=== PATIENT | female | born 2000 | race Caucasian/White ===

== ENCOUNTER 2022-10-26 13:51 | Emergency (ER) | payer OTHER ==
[~2022-10-26] VITALS: Ht 167.6 cm; Wt 97.3 kg
[2022-10-26 15:07] LABS: BASO % 0.3 % (0.0-1.0); EOS % 0.3 % (0.0-3.0); HEMATOCRIT 42.3 % (36.0-47.0); HEMOGLOBIN 13.2 g/dl (12.0-15.5); LYMPH # 1.9 10^3/uL (1.5-5.0); LYMPH % 12.2 % (24.0-44.0); MEAN CORPUSCULAR HGB CONC 31.2 g/dl (32.0-36.5); MEAN CORPUSCULAR VOLUME 89.8 fl (80.0-96.0); MONO # 1.2 10^3/uL (0.0-0.8); MONO % 7.4 % (2.0-8.0); NEUTROPHILS # 12.5 10^3/uL (1.5-8.5); NEUTROPHILS % 79.3 % (36.0-66.0); PLATELET COUNT, AUTOMATED 327 10^3/uL (150-450); RED BLOOD COUNT 4.71 10^6/uL (4.00-5.40); WHITE BLOOD COUNT 15.8 10^3/uL (4.0-10.0)
[2022-10-26] MEDS ORDERED: ISOVUE-370 76% 100ML VIAL As Ordered ONE (15:42)
[2022-10-26 15:48] LABS: MONO REFLEX EBV COMP NEGATIVE (NEGATIVE)
[2022-10-26] MEDS ORDERED: AMPICILLIN SOD/SULBACTAM SOD 3 GM in D5W MINI-BAG PLUS 100 ML IV ONE (16:25)
[2022-10-26] MEDS ORDERED: LIDOCAINE W/EPINEPHRINE 1% 20ML VIAL SC ONE (16:40)
[2022-10-26] MEDS ORDERED: ONDANSETRON 4MG 2ML VIAL As Ordered ONE (17:00)
[2022-10-26] MEDS ORDERED: NS 1,000 ML IV ONE (17:05)
[2022-10-26] MEDS ORDERED: ONDANSETRON 4MG 2ML VIAL IV ONE (17:05)
[2022-10-26 17:59] VITALS: BP 126/62
[2022-10-26] MEDS ORDERED: AMOX875T2 (18:03)
[2022-10-26] MEDS ORDERED: MEDR4PAK (18:03)
[2022-10-26 18:27] LABS: RSV AMPLIFICATION NEGATIVE (NEGATIVE)
[2022-10-28 18:08] LABS: EBV AB TO NUCLEAR ANTIGEN >600.0 U/mL (0.0-17.9); EBV VIRAL CAPSID AG IgM <36.0 U/mL (0.0-35.9)
== END 2022-10-26 19:00 | disposition home or self-care (01) ==
LOC: M ED 13:51
DX: J36 Peritonsillar abscess (principal)
CPT/HCPCS: 70491; 80047; 83605; 84702; 85025; 86308; 86664; 86665; 87040; 87631; 87880; 96361; 96365; 96375; 99284; J0295; J2405